=== PATIENT | male | born 1980 | race Caucasian/White ===

== ENCOUNTER 2017-02-07 08:47 | Inpatient (IN) | payer OTHER ==
[~2017-02-07] VITALS: Ht 170.2 cm; Wt 77.1 kg
[2017-02-07 09:57] LABS: ADD MIUA? YES; BILIRUBIN NEGATIVE; BLOOD NEGATIVE; COLOR YELLOW ((YELLOW)); GLUCOSE (STRIP) NEGATIVE; KETONES 5; LEUKOCYTES NEGATIVE; NITRITE NEGATIVE; PROTEIN (STRIP) 100; SPECIFIC GRAVITY 1.025 (1.000-1.030)
[2017-02-07 10:04] LABS: BACTERIA RARE /HPF; EPITHELIAL CELLS NONE SEEN /HPF; MUCUS 4+ /LPF; RED BLOOD CELLS 0-5 /HPF (0-5); UCUL ADDED? NO; WHITE BLOOD CELLS 0-5 /HPF (0-5)
[2017-02-07 10:07] LABS: HEMATOCRIT 43.4 % (38.0-50.0); MCH 32.1 PG (29.0-34.0); MCHC 33.2 G/DL (30.0-36.0); MCV 96.7 FL (86-99); MEAN PLAT.VOLUME 10.9 uM^3 (9.0-12.4); PLATELET COUNT 312 K/uL (156-360); RBC DIS.WIDTH-CV 12.3 % (11.8-14.6); RBC DIS.WIDTH-SD 44.1 % (39-53); RED BLOOD COUNT 4.49 M/uL (4.00-5.50); WHITE BLOOD COUNT 23.7 K/uL (4.1-10.2)
[2017-02-07 10:13] LABS: CHLORIDE 102 mEq/L (99-109); POTASSIUM 4.2 mEq/L (3.7-5.4); SODIUM 139 mEq/L (136-147)
[2017-02-07 10:15] LABS: GLUCOSE 106 mg/dL (70-99)
[2017-02-07 10:16] LABS: ANION GAP 12 MEQ/L (2-14)
[2017-02-07 10:19] LABS: GFR ESTIMATE (CALCULATED) > 59 mL/min/; UREA NITROGEN (BUN) 12 mg/dL (9-23)
[2017-02-07 11:22] LABS: TOTAL BILIRUBIN 0.6 mg/dL (0.0-1.0)
[2017-02-07 11:24] LABS: ALKALINE PHOSPHATASE 67 IU/L (3-129)
[2017-02-07 11:26] LABS: DIRECT BILIRUBIN 0.3 mg/dL (0.0-0.3)
[2017-02-07 11:27] LABS: LIPASE 5 U/L (1.0-51.0)
[2017-02-07 12:23] LABS: TROP-I INTERPRETATION NEGATIVE; TROPONIN-I < 0.01 ng/mL (0.0-0.30)
[2017-02-07 13:24] LABS: INTER. NORMALIZED RATIO 1.1; PROTHROMBIN TIME 11.3 (9.2-11.2); PTT 42.2 (25-32)
[2017-02-07 14:45] LABS: EOSINOPHIL (%) 0.3 % (0-5); EOSINOPHIL COUNT 0.1 K/uL (0-0.3); HEMATOCRIT 38.3 % (38.0-50.0); IMMATURE GRANULOCYTE (%) 0.8 % (0.0-0.7); IMMATURE GRANULOCYTE COUNT 0.1 K/uL; INSTRUMENT ABS NEUTROPHIL CT 14.7 K/uL; LYMPHOCYTE COUNT 2.2 K/uL (1.0-2.8); MCH 32.3 PG (29.0-34.0); MCHC 33.7 G/DL (30.0-36.0); MEAN PLAT.VOLUME 10.2 uM^3 (9.0-12.4); MONOCYTE COUNT 1.5 K/uL (0-0.8); NEUTROPHIL (%) 78.9 % (45-76); NEUTROPHIL COUNT 14.7 K/uL (1.8-6.4); PLATELET COUNT 260 K/uL (156-360); RBC DIS.WIDTH-CV 12.3 % (11.8-14.6); RBC DIS.WIDTH-SD 43.6 % (39-53); RED BLOOD COUNT 3.99 M/uL (4.00-5.50); WHITE BLOOD COUNT 18.6 K/uL (4.1-10.2)
[2017-02-07 14:55] LABS: CHLORIDE 104 mEq/L (99-109); POTASSIUM 3.5 mEq/L (3.7-5.4); SODIUM 136 mEq/L (136-147)
[2017-02-07 14:56] LABS: AMYLASE 51 IU/L (1-118)
[2017-02-07 14:57] LABS: GLUCOSE 100 mg/dL (70-99)
[2017-02-07 14:58] LABS: ANION GAP 10 MEQ/L (2-14)
[2017-02-07 15:01] LABS: ALKALINE PHOSPHATASE 47 IU/L (3-129); GFR ESTIMATE (CALCULATED) > 59 mL/min/
[2017-02-07 15:02] LABS: UREA NITROGEN (BUN) 10 mg/dL (9-23)
[2017-02-07 15:03] LABS: TOTAL BILIRUBIN 0.4 mg/dL (0.0-1.0)
[2017-02-07 15:37] LABS: INFLUENZA A VIRAL ANTIGEN NEGATIVE; INFLUENZA B VIRAL ANTIGEN NEGATIVE
[2017-02-07 15:41] LABS: LACTATE DEHYDROGENASE 179 IU/L (20-246); TRIGLYCERIDES 84 MG/DL (Normal: <150)
[2017-02-07 15:42] LABS: LACTATE DEHYDROGENASE 194 IU/L (20-246)
[2017-02-07 18:00] VITALS: BP 143/89
[2017-02-07 19:23] VITALS: BP 143/71
[2017-02-07 23:09] VITALS: BP 127/66
[2017-02-08] VITALS (9 sets, daily range): BP systolic 108–175; BP diastolic 56–92
[2017-02-08 06:22] LABS: HEMATOCRIT 37.3 % (38.0-50.0); MCH 32.2 PG (29.0-34.0); MCV 97.6 FL (86-99); MEAN PLAT.VOLUME 11.2 uM^3 (9.0-12.4); PLATELET COUNT 271 K/uL (156-360); RBC DIS.WIDTH-CV 12.6 % (11.8-14.6); RBC DIS.WIDTH-SD 45.1 % (39-53); RED BLOOD COUNT 3.82 M/uL (4.00-5.50); WHITE BLOOD COUNT 16.6 K/uL (4.1-10.2)
[2017-02-08 06:41] LABS: ALKALINE PHOSPHATASE 70 IU/L (3-129); ANION GAP 10 MEQ/L (2-14); CHLORIDE 105 MEQ/L (99-109); GFR ESTIMATE (CALCULATED) > 59 mL/min/; GLUCOSE 101 mg/dL (70-99); POTASSIUM 4.1 MEQ/L (3.7-5.4); SAMPLE HEMOLYSIS CHECK 0; SAMPLE ICTERIC CHECK 0; SAMPLE LIPEMIA CHECK 0; SODIUM 139 MEQ/L (136-147); TOTAL BILIRUBIN 0.3 MG/DL (0.0-1.0); UREA NITROGEN (BUN) 8 mg/dL (9-23)
[2017-02-08 06:44] LABS: Estimated Average Glucose 108 mg/dL (70-123); HEMOGLOBIN A1c (GLYCOHEMOGLOB) 5.4 % HGB (Below 5.7)
[2017-02-08 08:27] LABS: INTERNAL CONTROL VALID? YES
[2017-02-08 09:45] LABS: TYPE OF FLUID THORACENTESIS
[2017-02-08 10:13] LABS: BODY FLUID RBC'S < 1000 /MM^3 (0-100)
[2017-02-08 10:14] LABS: BODY FLUID LDH 1112 IU/L; BODY FLUID PROTEIN 5.7 G/DL; BODY FLUID WBC'S 1792 /MM^3 (0-500)
[2017-02-08 10:37] LABS: BODY FLUID EOSINOPHILS 0 % (0-25); MONO RAW COUNT 4; MONONUCLEAR WBC'S 4 %; POLY RAW COUNT 96; POLYNUCLEAR WBC'S 96 % (0-25)
[2017-02-08] MEDS ORDERED: AMBIEN5 MG PO (19:14)
[2017-02-09 05:10] VITALS: BP 134/84
[2017-02-09 07:00] VITALS: BP 128/89
[2017-02-09 07:02] LABS: MCH 32.7 PG (29.0-34.0); MCHC 33.4 G/DL (30.0-36.0); MCV 97.9 FL (86-99); MEAN PLAT.VOLUME 11.2 uM^3 (9.0-12.4); PLATELET COUNT 277 K/uL (156-360); RBC DIS.WIDTH-CV 12.6 % (11.8-14.6); RBC DIS.WIDTH-SD 45.3 % (39-53); RED BLOOD COUNT 3.88 M/uL (4.00-5.50); WHITE BLOOD COUNT 12.7 K/uL (4.1-10.2)
[2017-02-09 12:23] VITALS: BP 131/70
[2017-02-09 15:59] VITALS: BP 119/81
[2017-02-09 19:18] VITALS: BP 148/76
[2017-02-09 23:22] VITALS: BP 111/67
[2017-02-10 03:00] VITALS: BP 105/56
[2017-02-10 03:15] LABS: BODY FLUID PH 7.5 (())
[2017-02-10 07:55] VITALS: BP 145/80
[2017-02-10 11:40] VITALS: BP 131/73
[2017-02-10 14:49] VITALS: BP 130/75
[2017-02-10 19:09] VITALS: BP 129/85
[2017-02-10 23:59] VITALS: BP 115/59
[2017-02-11 03:39] VITALS: BP 109/56
[2017-02-11 07:09] LABS: BASOPHIL COUNT 0.1 K/uL (0-0.1); EOSINOPHIL (%) 1.2 % (0-5); EOSINOPHIL COUNT 0.2 K/uL (0-0.3); IMMATURE GRANULOCYTE (%) 0.8 % (0.0-0.7); IMMATURE GRANULOCYTE COUNT 0.1 K/uL; INSTRUMENT ABS NEUTROPHIL CT 8.8 K/uL; LYMPHOCYTE COUNT 2.9 K/uL (1.0-2.8); MCH 32.1 PG (29.0-34.0); MCHC 33.1 G/DL (30.0-36.0); MEAN PLAT.VOLUME 10.6 uM^3 (9.0-12.4); MONOCYTE (%) 9.4 % (3-12); MONOCYTE COUNT 1.3 K/uL (0-0.8); NEUTROPHIL COUNT 8.8 K/uL (1.8-6.4); RBC DIS.WIDTH-CV 12.1 % (11.8-14.6); RBC DIS.WIDTH-SD 43.6 % (39-53); RED BLOOD COUNT 4.33 M/uL (4.00-5.50); WHITE BLOOD COUNT 13.4 K/uL (4.1-10.2)
[2017-02-11 07:12] LABS: PLATELET COUNT 362 K/uL (156-360)
[2017-02-11 07:57] LABS: ANION GAP 10 MEQ/L (2-14); CHLORIDE 101 MEQ/L (99-109); GFR ESTIMATE (CALCULATED) > 59 mL/min/; GLUCOSE 105 mg/dL (70-99); POTASSIUM 4.6 MEQ/L (3.7-5.4); SAMPLE HEMOLYSIS CHECK 0; SAMPLE ICTERIC CHECK 0; SAMPLE LIPEMIA CHECK 0; SODIUM 139 MEQ/L (136-147); UREA NITROGEN (BUN) 9 mg/dL (9-23)
[2017-02-11 08:14] VITALS: BP 130/84
[2017-02-11] MEDS ORDERED: KEFLEX500 MG PO (09:50)
== END 2017-02-11 11:36 | disposition home or self-care (01) | DRG 194 ==
LOC: EME 08:47 → 4EAST 13:52 → EDOF 13:52 → 4EAST 17:33
PROVIDERS: Hospitalist; Internal Medicine; Nurse Practitioner Family; Physician Assistant
PROC: 0W9930Z Drainage of Right Pleural Cavity with Drainage Device, Percutaneous Approach (ICD-10-PCS; principal; 2017-02-08)
DX: J15.4 Pneumonia due to other streptococci (principal); J90 Pleural effusion, not elsewhere classified; R10.9 Unspecified abdominal pain; L40.9 Psoriasis, unspecified; N20.0 Calculus of kidney; Z87.891 Personal history of nicotine dependence
CPT/HCPCS: 10030; 32552; 71020; 71250; 71275; 74177; 76604; 80048; 80053; 80076; 81003; 82150; 82150 91; 82800; 82945; 83036; 83605; 83615; 83615 91; 83690; 83880; 83986 90; 84157; 84478; 84484; 85025; 85027; 85610; 85730; 87040; 87070; 87075; 87077; 87102; 87103; 87116; 87181; 87205; 87206; 87449; 87502; 88108; 88305; 89051; 93005; 99281; 99285; C1729; J0456; J0696; J1644; J3010; J7030; J7050

== ENCOUNTER → 2017-03-29 | Outpatient (CLI) | payer OTHER ==
[~2017-03-29] MED LIST: AMBIEN5 MG PO; KEFLEX500 MG PO
== END | disposition home or self-care (01) ==
LOC: RAD 14:31
DX: R91.8 Other nonspecific abnormal finding of lung field (principal); F17.200 Nicotine dependence, unspecified, uncomplicated; J18.9 Pneumonia, unspecified organism
CPT/HCPCS: 71260